=== PATIENT | female | born 1940 | race Hispanic/Latino ===

== ENCOUNTER 2017-08-29 08:46 | Emergency (ER) | payer MEDICARE ==
[~2017-08-29 08:46] MED LIST: ACET-2900 PO; ACET1TAB12 PO; ALEN70TA47 PO; AMLO10TA2 PO; BACL10TA PO; CALC1TAB2 PO; CITA-106 PO; DICL2100G TP; DOCU-116 PO; DONE5TAB2 PO; FERR325T22 PO; FLUT8AER3 IH; FOLI1TAB85 PO; INSLAN SQ; LACT10SO9 PO; MELO-108 PO; METF10004 PO; ONDA4TAB4 PO; PANT20TA PO; POTA-79 PO; ZARO5 PO
[2017-08-29 09:39] LABS: APPEARANCE,URINE Cloudy (CLEAR); BILIRUBIN,URINE Negative (NEGATIVE); COLOR,URINE Yellow (YELLOW); GLUCOSE, URINE (UA) Negative (NEGATIVE); KETONES,URINE Trace mg/dL (NEGATIVE); LEUKOCYTE ESTERASE ,URINE Small (NEGATIVE); NITRATE,URINE Positive (NEGATIVE); OCCULT BLOOD,URINE Trace (NEGATIVE); PROTEIN,URINE POS 2+ (NEGATIVE)
[2017-08-29 09:59] LABS: BACTERIA,URINE Many /HPF (None Seen); RBC,URINE 0-1 /HPF (0-1); SQUAMOUS EPITHELIAL CELL,UR Rare /LPF (0-2)
== END 2017-08-29 10:08 | disposition home or self-care (01) ==
LOC: EDH 08:46
DX: N39.0 Urinary tract infection, site not specified (principal); I25.10 Atherosclerotic heart disease of native coronary artery without angina pectoris; E11.9 Type 2 diabetes mellitus without complications; F03.90 Unspecified dementia, unspecified severity, without behavioral disturbance, psychotic disturbance, mood disturbance, and anxiety; Z87.891 Personal history of nicotine dependence
CPT/HCPCS: 81001; 87088; 87186

== ENCOUNTER 2017-09-13 12:36 | Inpatient (IN) | payer MEDICARE ==
[~2017-09-13] VITALS: Ht 157.5 cm; Wt 45.2 kg
[2017-09-13] MEDS ORDERED: SODIUM CHLORIDE 0.9% 1000ML 1,000 ML IV ONE (13:47)
[2017-09-13] MEDS ORDERED: ONDANSETRON HCL 4 MG/2 ML VIAL ONE ×2 (13:47→15:24)
[2017-09-13 13:59] LABS: BASOPHILS % (AUTO) 0.5 % (0.0-5.0); EOSINOPHILS % (AUTO) 1.5 % (0.0-8.0); HEMATOCRIT 33.6 % (36-48); LYMPHOCYTES % (AUTO) 16.3 % (21.0-51.0); MEAN CORPUSCULAR HEMOGLOBIN 26.8 pg (27.0-33.0); MEAN CORPUSCULAR HGB CONC 33.3 g/dL (32.0-36.0); MEAN CORPUSCULAR VOLUME 80.5 fL (79-99); NEUTROPHILS % (AUTO) 73.7 % (40.0-77.0); PLATELET COUNT (AUTO) 157 K/uL (130-400); RED BLOOD CELL COUNT(AUTO) 4.17 MIL/uL (4.00-5.50); RED CELL DISTRIBUTION WIDTH 16.4 % (11.0-15.5); WHITE BLOOD COUNT (AUTO) 5.8 K/uL (4.8-10.8)
[2017-09-13 14:18] LABS: CREATININE 1.9 mg/dL (0.5-1.5); POTASSIUM 4.1 mmol/L (3.5-5.1)
[2017-09-13 14:32] LABS: ALBUMIN 3.4 g/dL (3.5-5.0); BILIRUBIN,TOTAL 0.5 mg/dL (0.2-1.0); CREATINE KINASE MB 1.4 ng/mL (0.5-3.6); TOTAL PROTEIN, SERUM 7.4 g/dL (6.0-8.3)
[2017-09-13 14:39] LABS: PARTIAL THROMBOPLASTIN TIME 26.6 SEC (26.3-35.5); PROTHROMBIN TIME 10.5 SEC (9.6-11.6)
[2017-09-13] MEDS ORDERED: HYOSCYAMINE SULFATE 0.125 MG TAB.SUBL SL ONE (15:24)
[2017-09-13] MEDS ORDERED: MORPHINE SULFATE 2 MG/ML 1ML SYG ONE (15:25)
[2017-09-13 19:20] VITALS: BP 172/74
[2017-09-13] MEDS: SODIUM CHLORIDE 0.9% 1000ML 1,000 ML IV SCH (19:45)
[2017-09-13] MEDS ORDERED: HYDROMORPHONE HCL 0.5 MG/0.5 ML ML IVP PRN (19:45)
[2017-09-13] MEDS ORDERED: PANTOPRAZOLE 40 MG/VIAL IVP SCH (19:45)
[2017-09-13] MEDS: ONDANSETRON HCL 4 MG/2 ML VIAL IVP PRN (20:07)
[2017-09-13] MEDS ORDERED: CLONIDINE HCL 0.2 MG TABLET PO SCH (20:45)
[2017-09-13 21:15] VITALS: BP 141/68
[2017-09-14] VITALS (7 sets, daily range): BP systolic 104–187; BP diastolic 48–76
[2017-09-14] MEDS: ONDANSETRON HCL 4 MG/2 ML VIAL IVP PRN (00:59)
[2017-09-14] MEDS ORDERED: DEXTROSE 50%-WATER 50 ML DISP.SYRIN IV PRN (06:00)
[2017-09-14] MEDS ORDERED: GLUCAGON 1MG KIT 1 MG ML IM PRN (06:00)
[2017-09-14 06:03] LABS: HEMATOCRIT 35.3 % (36-48); MEAN CORPUSCULAR HEMOGLOBIN 27.4 pg (27.0-33.0); MEAN CORPUSCULAR HGB CONC 33.8 g/dL (32.0-36.0); MEAN CORPUSCULAR VOLUME 81.1 fL (79-99); PLATELET COUNT (AUTO) 167 K/uL (130-400); RED BLOOD CELL COUNT(AUTO) 4.35 MIL/uL (4.00-5.50); RED CELL DISTRIBUTION WIDTH 16.7 % (11.0-15.5); WHITE BLOOD COUNT (AUTO) 4.7 K/uL (4.8-10.8)
[2017-09-14 06:15] LABS: ALBUMIN 3.2 g/dL (3.5-5.0); BILIRUBIN,TOTAL 0.8 mg/dL (0.2-1.0); CREATININE 1.5 mg/dL (0.5-1.5); MAGNESIUM 1.8 mg/dL (1.80-2.40); POTASSIUM 3.6 mmol/L (3.5-5.1); TOTAL PROTEIN, SERUM 7.2 g/dL (6.0-8.3)
[2017-09-14] MEDS ORDERED: HYDROMORPHONE HCL 0.5 MG/0.5 ML ML IVP PRN (06:41)
[2017-09-14] MEDS: INSULIN HUMULIN R 100 UNIT/ML 3ML SQ SCH ×3 (06:59→20:31)
[2017-09-14] MEDS: SODIUM CHLORIDE 0.9% 1000ML 1,000 ML IV SCH ×2 (10:00→22:25)
[2017-09-14] MEDS: AMLODIPINE BESYLATE 5 MG TAB PO SCH (20:39)
[2017-09-14] MEDS: METOPROLOL TARTRATE 50 MG TAB PO SCH (20:39)
[2017-09-15 04:00] VITALS: BP 174/60
[2017-09-15 04:17] LABS: HEMATOCRIT 34.8 % (36-48); MEAN CORPUSCULAR HEMOGLOBIN 26.9 pg (27.0-33.0); MEAN CORPUSCULAR HGB CONC 33.1 g/dL (32.0-36.0); MEAN CORPUSCULAR VOLUME 81.2 fL (79-99); PLATELET COUNT (AUTO) 177 K/uL (130-400); RED BLOOD CELL COUNT(AUTO) 4.28 MIL/uL (4.00-5.50); RED CELL DISTRIBUTION WIDTH 16.7 % (11.0-15.5); WHITE BLOOD COUNT (AUTO) 4.1 K/uL (4.8-10.8)
[2017-09-15 04:36] LABS: CREATININE 1.4 mg/dL (0.5-1.5); MAGNESIUM 1.8 mg/dL (1.80-2.40); POTASSIUM 3.7 mmol/L (3.5-5.1)
[2017-09-15] MEDS: INSULIN HUMULIN R 100 UNIT/ML 3ML SQ SCH ×4 (05:54→20:50)
[2017-09-15] MEDS: AMLODIPINE BESYLATE 5 MG TAB PO SCH ×2 (10:55→20:50)
[2017-09-15] MEDS: METOPROLOL TARTRATE 50 MG TAB PO SCH ×2 (10:55→20:50)
[2017-09-15] MEDS: SODIUM CHLORIDE 0.9% 1000ML 1,000 ML IV SCH (11:45)
[2017-09-15 12:00] VITALS: BP 170/68
[2017-09-15] MEDS ORDERED: MAGNESIUM SULFATE 2 GM in SODIUM CHLORIDE 0.9% 50 ML IV SCH (13:00)
[2017-09-15] MEDS ORDERED: MAGNESIUM 2GM PREMIX 50ML 50 ML IV ONE (14:08)
[2017-09-15 17:20] VITALS: BP 131/59
[2017-09-15 19:55] VITALS: BP 114/58
[2017-09-15 20:47] VITALS: BP 149/58
[2017-09-15] MEDS: ONDANSETRON HCL 4 MG/2 ML VIAL IVP PRN (20:50)
[2017-09-15 23:00] VITALS: BP 140/59
[2017-09-16 04:14] VITALS: BP 157/51
[2017-09-16] MEDS: INSULIN HUMULIN R 100 UNIT/ML 3ML SQ SCH ×2 (06:00→11:30)
[2017-09-16 07:00] VITALS: BP 187/80
[2017-09-16] MEDS ORDERED: ZOSYN 2.25GM+NS 50ML 50 ML IV SCH (08:15)
[2017-09-16] MEDS ORDERED: MEROPENEM 500 MG VIAL IVP SCH (09:00)
[2017-09-16] MEDS ORDERED: BACL10TA PO (10:40)
[2017-09-16] MEDS ORDERED: MELO-108 PO (10:40)
[2017-09-16 11:00] VITALS: BP 137/63
[2017-09-16] MEDS: AMLODIPINE BESYLATE 5 MG TAB PO SCH (11:16)
[2017-09-16] MEDS: METOPROLOL TARTRATE 50 MG TAB PO SCH (11:16)
== END 2017-09-16 17:01 | DRG 683 ==
LOC: EDH 12:36 → EDHIP 17:00 → 3AH 19:07
PROVIDERS: ADMIT Family Medicine; ATTEND Family Medicine
DX: N17.9 Acute kidney failure, unspecified (principal); N39.0 Urinary tract infection, site not specified; E11.22 Type 2 diabetes mellitus with diabetic chronic kidney disease; D64.9 Anemia, unspecified; I12.9 Hypertensive chronic kidney disease with stage 1 through stage 4 chronic kidney disease, or unspecified chronic kidney disease; E86.0 Dehydration; E87.6 Hypokalemia; I25.10 Atherosclerotic heart disease of native coronary artery without angina pectoris; I99.8 Other disorder of circulatory system; N18.9 Chronic kidney disease, unspecified; Z16.12 Extended spectrum beta lactamase (ESBL) resistance; Z91.81 History of falling
CPT/HCPCS: 36415; 71045; 72192; 74176; 80048; 80053; 82150; 82550; 82553; 82948; 83690; 83735; 84484; 85025; 85027; 85610; 85730; 87040; 87088; 87186; 93005; 97039; A4218; C9113; J2185; J2405; J2543; J3475; J7030

== ENCOUNTER 2017-12-30 12:22 | Emergency (ER) | payer MEDICARE ==
[~2017-12-30 12:22] MED LIST changes: -ACET-2900 PO; -ACET1TAB12 PO; -ALEN70TA47 PO; -AMLO10TA2 PO; -CALC1TAB2 PO; -CITA-106 PO; -DICL2100G TP; -DOCU-116 PO; -DONE5TAB2 PO; -FERR325T22 PO; -FLUT8AER3 IH; -FOLI1TAB85 PO; -INSLAN SQ; -LACT10SO9 PO; -METF10004 PO; -ONDA4TAB4 PO; -PANT20TA PO; -POTA-79 PO; -ZARO5 PO
[2017-12-30 12:54] LABS: APPEARANCE,URINE Clear (CLEAR); BILIRUBIN,URINE Negative (NEGATIVE); COLOR,URINE Yellow (YELLOW); GLUCOSE, URINE (UA) Negative (NEGATIVE); KETONES,URINE Trace mg/dL (NEGATIVE); LEUKOCYTE ESTERASE ,URINE Trace (NEGATIVE); NITRATE,URINE Negative (NEGATIVE); OCCULT BLOOD,URINE Negative (NEGATIVE); PH,URINE 7.5 (5.0-8.0); PROTEIN,URINE POS 2+ (NEGATIVE)
[2017-12-30 13:07] LABS: RBC,URINE 0-1 /HPF (0-1); WBC,URINE 0-1 /HPF (0-1)
[2017-12-30 13:08] LABS: MUCUS,URINE Few LPF (None Seen); SQUAMOUS EPITHELIAL CELL,UR Few /HPF (0-2)
[2017-12-30 13:11] LABS: BACTERIA,URINE Rare /HPF (None Seen); YEAST,URINE BUDDING Few /HPF (None Seen)
[2017-12-30 13:12] LABS: BASOPHILS % (AUTO) 0.7 % (0.0-5.0); EOSINOPHILS % (AUTO) 0.7 % (0.0-8.0); HEMATOCRIT 36.9 % (36-48); LYMPHOCYTES % (AUTO) 17.1 % (21.0-51.0); MEAN CORPUSCULAR HEMOGLOBIN 28.1 pg (27.0-33.0); MEAN CORPUSCULAR HGB CONC 32.7 g/dL (32.0-36.0); MEAN CORPUSCULAR VOLUME 85.9 fL (79-99); MONOCYTES % (AUTO) 7.2 % (3.0-13.0); NEUTROPHILS % (AUTO) 74.3 % (40.0-77.0); PLATELET COUNT (AUTO) 130 K/uL (130-400); RED BLOOD CELL COUNT(AUTO) 4.29 MIL/uL (4.00-5.50); RED CELL DISTRIBUTION WIDTH 14.5 % (11.0-15.5); WHITE BLOOD COUNT (AUTO) 4.3 K/uL (4.8-10.8)
[2017-12-30 13:20] LABS: CREATININE 1.7 mg/dL (0.5-1.5); POTASSIUM 4.2 mmol/L (3.5-5.1)
[2017-12-30 13:33] LABS: ALBUMIN 3.7 g/dL (3.5-5.0); BILIRUBIN,TOTAL 0.8 mg/dL (0.2-1.0); CREATINE KINASE MB 1.4 ng/mL (0.5-3.6); TOTAL PROTEIN, SERUM 7.5 g/dL (6.0-8.3)
[2017-12-30] MEDS ORDERED: SODIUM CHLORIDE 0.9% 1000ML 1,000 ML IV ONE (13:50)
== END 2017-12-30 18:15 | disposition home or self-care (01) ==
LOC: EDH 12:22
DX: R53.1 Weakness (principal); M79.1 Myalgia; R10.9 Unspecified abdominal pain; E11.9 Type 2 diabetes mellitus without complications; I25.10 Atherosclerotic heart disease of native coronary artery without angina pectoris
CPT/HCPCS: 36415; 71045; 74176; 80053; 81001; 82550; 82553; 83690; 84484; 85025; 93005; 99285; J7030

== ENCOUNTER 2019-12-19 20:02 | Emergency (ER) | payer MEDICARE ==
[2019-12-19] MEDS ORDERED: PHENAZOPYRIDINE HCL 200 MG TABLET ONE (20:49)
[2019-12-19 21:34] LABS: APPEARANCE,URINE Cloudy (CLEAR); BILIRUBIN,URINE Negative (NEGATIVE); COLOR,URINE Dark Yellow (YELLOW); GLUCOSE, URINE (UA) Negative (NEGATIVE); KETONES,URINE Trace mg/dL (NEGATIVE); LEUKOCYTE ESTERASE ,URINE Small (NEGATIVE); NITRATE,URINE Negative (NEGATIVE); OCCULT BLOOD,URINE Trace (NEGATIVE); PROTEIN,URINE POS 1+ mg/dL (NEGATIVE)
[2019-12-19 21:45] LABS: BACTERIA,URINE Few /HPF (None Seen); MUCUS,URINE Few LPF (None Seen); SQUAMOUS EPITHELIAL CELL,UR Few /HPF (0-2)
[2019-12-19] MEDS ORDERED: CEPHALEXIN 500 MG CAPSULE ONE (21:59)
== END 2019-12-19 23:34 | disposition home or self-care (01) ==
LOC: EDH 20:02
DX: N39.0 Urinary tract infection, site not specified (principal); R10.2 Pelvic and perineal pain; I25.10 Atherosclerotic heart disease of native coronary artery without angina pectoris; E11.9 Type 2 diabetes mellitus without complications
CPT/HCPCS: 81001; 87088